=== PATIENT | female | born 1945 | race Caucasian/White ===

== ENCOUNTER → 2017-03-09 | Outpatient (CLI) | payer MEDICARE ==
[~2017-03-09] VITALS: Ht 170.2 cm; Wt 86.3 kg
[~2017-03-09] MED LIST: ACTO30TA10 PO; ASPI-110 PO; CANA300T PO; CHLORHEXIDINE GLUCONATE 2 % 1 PACK (2 CLOTHS) TOPICAL PRN; FLUO1TAB3 PO; INSULIN HUMAN REGULAR 1,000 UNITS/10 ML VIAL SQ PRN; LACTATED RINGER'S 1000 ML IV PRN; LEVO150T7 PO; LISI-515 PO; LOVA40TA PO; METF1000 PO; METOPROLOL TARTRATE 25 MG TAB PO PRN; POVIDONE IODINE 5% (ANTISEPSIS KIT) 4 APPLICATIONS EACH NARE PRN; PRAM0.5T PO; PRIM50TA5 PO; REGL10TA5 PO; SITA1TAB2 PO; SODIUM CHLORID 0.9% 500 ML IV PRN; ZANTTAB PO
[2017-03-09 10:58] VITALS: BP 134/67; PULSE 79; RESP 16; TEMP 98.1; O2SAT 96
[2017-03-09 12:18] LABS: HEMATOCRIT 34.6 % (35.0-46.0); MEAN CELL VOLUME 94.8 FL (80.0-100.0); MEAN CORPUSCULAR HEMOGLOBIN 30.9 PG (27.0-34.0); MEAN CORPUSCULAR HGB CONC 32.6 % (32.0-36.0); PLATELET COUNT 294 TH/MM3 (150-450); RED BLOOD COUNT 3.64 MIL/MM3 (4.00-5.30); RED CELL DISTRIBUTION WIDTH 16.2 % (11.6-17.2); WHITE BLOOD COUNT 15.5 TH/MM3 (4.0-11.0)
[2017-03-09 12:22] LABS: HEMO FLAGS AUTO DIFF
[2017-03-09 12:31] LABS: PROTHROMBIN TIME - PATIENT 10.6 SEC (9.8-11.6)
[2017-03-09 12:35] LABS: ALT (GPT) 78 U/L (10-53)
[2017-03-09 12:37] LABS: ALKALINE PHOSPHATASE 477 U/L (45-117); TOTAL BILIRUBIN ADULT 5.6 MG/DL (0.2-1.0)
[2017-03-09 12:58] LABS: ANION GAP 8 MEQ/L (5-15); AST (GOT) 102 U/L (15-37); BICARBONATE 24.7 MEQ/L (21.0-32.0); BLOOD UREA NITROGEN 32 MG/DL (7-18); CHLORIDE 98 MEQ/L (98-107); GLOMERULAR FILTRATION RATE 55 ML/MIN (>89); POTASSIUM 3.7 MEQ/L (3.5-5.1); SODIUM (NA) 131 MEQ/L (136-145)
[2017-03-09 13:06] LABS: BANDS 4 % (0-6); BASOPHILS 1 % (0-2); EOSINOPHILS 1 % (0-4); MYELOCYTES 1 % (0-0); NEUTROPHIL # MANUAL DIFF 12.9 TH/MM3 (1.8-7.7); PLATELET ESTIMATE SMEAR NORMAL (NORMAL); PLATELET MORPHOLOGY ENLARGED (NORMAL); POLYS (SEG NEUTROPHILS) 78 % (16-70); WBC DIFF SAMPLE 100
[2017-03-09 13:07] LABS: SCAN/DIFF FINAL DIFF MANUAL
--- NOTE | 2017-03-09 15:15 | EKG ---
Date Performed: 03/09/2017 Time Performed: 11:01:22 PTAGE: 72 years EKG: Sinus rhythm Since previous tracing, no significant change noted NORMAL ECG PREVIOUS TRACING : 02/18/2007 08.01 DOCTOR: Saad Ponce Interpretating Date/Time 03/09/2017 15:14:03
== END ==
LOC: HOR 10:26
PROVIDERS: ATTEND Internal Medicine Gastroenterology
DX: D64.9 Anemia, unspecified (principal); R79.1 Abnormal coagulation profile; Z53.09 Procedure and treatment not carried out because of other contraindication; Z01.810 Encounter for preprocedural cardiovascular examination
CPT/HCPCS: 80053; 85007; 85027; 85610; 93005; G0463; J7120; 99211

== ENCOUNTER 2018-02-11 09:29 | Observation (INO) | payer MEDICARE ==
[~2018-02-11] VITALS: Ht 167.6 cm; Wt 68.0 kg
[~2018-02-11 09:29] MED LIST changes: -ACTO30TA10 PO; -ASPI-110 PO; +ASPI1TAB57 PO; -CHLORHEXIDINE GLUCONATE 2 % 1 PACK (2 CLOTHS) TOPICAL PRN; -INSULIN HUMAN REGULAR 1,000 UNITS/10 ML VIAL SQ PRN; -LACTATED RINGER'S 1000 ML IV PRN; -METOPROLOL TARTRATE 25 MG TAB PO PRN; +PIOG30 PO; -POVIDONE IODINE 5% (ANTISEPSIS KIT) 4 APPLICATIONS EACH NARE PRN; -SODIUM CHLORID 0.9% 500 ML IV PRN
[2018-02-11] MEDS ORDERED: HUMALOG SQ (10:52)
[2018-02-11] MEDS ORDERED: URSO300C2 PO (10:52)
[2018-02-11] MEDS ORDERED: HYDR25TA5 PO (10:52)
[2018-02-11 11:05] LABS: AUTOMATED NEUTROPHIL # 7.6 TH/MM3 (1.8-7.7); BASOPHIL # 0.1 TH/MM3 (0-0.2); BASOPHIL % 0.7 % (0.0-2.0); EOSINOPHIL # 0.1 TH/MM3 (0-0.4); EOSINOPHIL % 0.6 % (0.0-4.0); HEMATOCRIT 35.7 % (35.0-46.0); HEMOGLOBIN 12.5 GM/DL (11.6-15.3); LYMPH % 14.6 % (9.0-44.0); LYMPHOCYTE # 1.4 TH/MM3 (1.0-4.8); MEAN CELL VOLUME 84.7 FL (80.0-100.0); MEAN CORPUSCULAR HEMOGLOBIN 29.7 PG (27.0-34.0); MEAN CORPUSCULAR HGB CONC 35.1 % (32.0-36.0); MEAN PLATELET VOLUME 8.7 FL (7.0-11.0); MONO % 6.4 % (0.0-8.0); MONOCYTE # 0.6 TH/MM3 (0-0.9); NEUT % 77.7 % (16.0-70.0); PLATELET COUNT 264 TH/MM3 (150-450); RED BLOOD COUNT 4.22 MIL/MM3 (4.00-5.30); RED CELL DISTRIBUTION WIDTH 15.3 % (11.6-17.2); WHITE BLOOD COUNT 9.7 TH/MM3 (4.0-11.0)
[2018-02-11 11:14] LABS: INTERNATIONAL NORMALIZED RATIO 1.1 RATIO; PROTHROMBIN TIME - PATIENT 10.7 SEC (9.8-11.6)
[2018-02-11 11:18] LABS: BICARBONATE 24.1 MEQ/L (21.0-32.0); CALCIUM 8.7 MG/DL (8.5-10.1); CREATININE 1.06 MG/DL (0.50-1.00)
[2018-02-11] MEDS ORDERED: LANTUS2P SQ (11:26)
[2018-02-11] MEDS ORDERED: METOPROLOL TARTRATE 25 MG TAB PO PRN (11:30)
[2018-02-11] MEDS ORDERED: LACTATED RINGER'S 1000 ML IV PRN (11:30)
[2018-02-11] MEDS ORDERED: CHLORHEXIDINE GLUCONATE 2 % 1 PACK (2 CLOTHS) TOPICAL PRN (11:30)
[2018-02-11] MEDS ORDERED: SODIUM CHLORID 0.9% 500 ML IV PRN (11:30)
[2018-02-11] MEDS ORDERED: POVIDONE IODINE 5% (ANTISEPSIS KIT) 4 APPLICATIONS EACH NARE PRN (11:30)
[2018-02-11] MEDS ORDERED: CHLORHEXIDINE GLUCONATE 4% SOLN 120 ML BTL TOPICAL SCH (11:45)
[2018-02-11] MEDS ORDERED: ceFAZolin 2 GM/DEX PREMIX 50 ML IV SCH (11:45)
[2018-02-11] MEDS ORDERED: INSULIN HUMAN REGULAR 1,000 UNITS/10 ML VIAL SQ PRN (11:45)
[2018-02-11] MEDS ORDERED: VANCOMYCIN HCL 1000 MG VIAL ONE (12:00)
[2018-02-11] MEDS ORDERED: ONDANSETRON HCL 4 MG/2 ML VIAL IV ONE (12:00)
[2018-02-11] MEDS ORDERED: GLYCOPYRROLATE 1 MG/5 ML SYRINGE IV PUSH ONE (12:00)
[2018-02-11] MEDS ORDERED: PROPOFOL 200 MG/20 ML AMP IV ONE (12:00)
[2018-02-11] MEDS ORDERED: PHENYLEPH/NS 1000 MCG/10 ML SYR IV ONE (12:00)
[2018-02-11] MEDS ORDERED: ePHEDrine/NS 25 MG/5 ML SYRINGE IV ONE (12:00)
[2018-02-11] MEDS ORDERED: LIDOCAINE HCL 1% PF 5 ML SYRINGE OTHER ONE (12:00)
[2018-02-11] MEDS ORDERED: DEXAMETHASONE SOD PHOS 4 MG/ML VIAL IV ONE (12:00)
[2018-02-11] MEDS ORDERED: NEOSTIGMINE 5 MG/5 ML SYRINGE IV PUSH ONE (12:00)
[2018-02-11] MEDS ORDERED: SODIUM CHLOR 0.9% 250 ML INJ 250 ML ONE (12:01)
[2018-02-11] MEDS ORDERED: GENTAMICIN SULFATE 80 MG/2 ML VIAL ONE (12:01)
[2018-02-11] MEDS ORDERED: BUPIVACAINE/EPINEPHRINE 0.5% PF 10 ML VIAL ONE (13:04)
--- NOTE | 2018-02-11 14:18 | RADRPT ---
EXAM DATE: 02/11/2018 2:15 PM EDT AGE/SEX: 72 years / Female INDICATIONS: ORIF right ankle. CLINICAL DATA: This is the patient's initial encounter. Patient reports that signs and symptoms have been present for 1 day and indicates a pain score of Nonresponsive. MEDICAL/SURGICAL HISTORY: Non-responsive. Non-responsive. COMPARISON: No prior exams available for comparison. FINDINGS: Side plate and multiple screws traverse the distal tibia with excellent anatomical alignme nt of the bony structures. CONCLUSION: Intact postsurgical changes for technique. Electronically signed by: Ld Parson MD 02/11/2018 2:17 PM EDT
[2018-02-11] MEDS ORDERED: MIDAZOLAM HCL 2 MG/2 ML VIAL ONE (14:23)
[2018-02-11] MEDS ORDERED: BISACODYL 10 MG SUPP RECTAL PRN (14:30)
[2018-02-11] MEDS ORDERED: SODIUM CHLORIDE 0.9% FLUSH 10 ML FLUSH IV FLUSH PRN (14:30)
[2018-02-11] MEDS ORDERED: Post-op Orders (for Pharmacy) XX ONE (14:30)
[2018-02-11] MEDS ORDERED: MORPHINE SULFATE 8 MG/ML INJ IV PUSH PRN (14:30)
[2018-02-11] MEDS ORDERED: diphenhydrAMINE HCL 25 MG CAP PO PRN (14:30)
--- NOTE | 2018-02-11 14:30 | PD.OP ---
cc: Pema Bai MD Operative Report Date of Surgery: Feb 11, 2018 Preoperative Diagnosis: Closed right ligamentous bimalleolar ankle fracture Postoperative Diagnosis: Same Procedure: Open reduction internal fixation right ligamentous bimalleolar ankle fracture Open reduction internal fixation right syndesmosis Anesthesia: General Surgeon: Pema Bai Rail Technician(s): Enrico Palomares Operation and Findings: EBL: 10 cc Specimens: None Complications: None Indications for procedure: Patient is a 72-year-old female presented to my clinic with a right displaced ligamentous bimalleolar ankle fracture with significant talar shift. Options of management were discussed with the patient including continued nonoperative care versus operative intervention in the form of open reduction internal fixation. Risks of surgery including but not limited to: Infection, nonunion or malunion, hardware malposition or failure, neurovascular injury, persistent ankle pain and/or stiffness, ankle instability , possible need for further surgery, and other unforeseen complications were all discussed with the patient. At this time she did elect to proceed with the above-mentioned procedure. Description of procedure: Patient was brought back to the operating room and placed supine on operating table with all bony prominence is well-padded. General anesthesia then ensued. A tourniquet was placed on the upper leg and patient was prepped and draped in standard sterile fashion. Preoperative antibiotics were given within 1 hour of incision. A lateral incision was made directly over the distal fibula where sharp dissection through the skin and subcutaneous tissue. The fracture was immediately identified and freed of tissue. There is significant tissue with in the fracture site that had to be cleaned to allow appropriate reduction. The fracture was reduced and held with a bone clamp. This was verified with AP and lateral radiographs. A lateral based distal fibular plate was then applied and affixed initially distally with locking screws. This was then appropriately reduced to the proximal fibula with nonlocking screws. The remaining locking screws were then placed distally. At this time there was good fixation and the fracture was well reduced, the fibula out to length and the mortise appeared stable. Given the fact the patient has significant diabetic neuropathy and relatively poor bone quality, it was decided that a syndesmotic screw would be placed. This was placed from lateral to medial through the fibula and into the distal tibia parallel to the joint surface but the foot held in maximum dorsiflexion. This was initially drilled, measured and then an appropriate length screw placed. Final radiographs demonstrated the hardware was in appropriate position, the fracture was well reduced and the ankle appeared stable. The wound was thoroughly irrigated with normal saline laden with gentamicin. The subcutaneous tissue was then closed with 2-0 Vicryl sutures and the skin closed with nylon. Half percent Marcaine was then injected for local anesthetic. Sterile dressings were then applied and a splint placed. Patient was awoke from general anesthesia without complication. Disposition: Patient will remain nonweightbearing to the right lower extremity in her splint until follow-up. Pema Bai MD Feb 11, 2018 14:30
[2018-02-11] MEDS ORDERED: ONDANSETRON ODT 4 MG TAB PO PRN (15:00)
[2018-02-11] MEDS ORDERED: INSULIN ASPART SUPPLEMENTAL SCALE ONE (15:13)
[2018-02-11] MEDS ORDERED: GLUCAGON 1 MG/ML VIAL OTHER PRN (15:30)
[2018-02-11] MEDS ORDERED: DEXTROSE 50% IN WATER 50 ML VIAL(D50) IV PUSH PRN (15:30)
[2018-02-11] MEDS ORDERED: DO NOT ADM ANY ANTICOAGULANT DRUGS PRN (15:30)
[2018-02-11] MEDS: MEDIUM DOSE INSULIN NOVOLOG SUPPLEMENTAL SCALE SQ SCH ×2 (17:00→21:32)
[2018-02-11 17:20] VITALS: BP 149/80; PULSE 71; RESP 16; TEMP 97.5; O2SAT 99
[2018-02-11] MEDS: CALCIUM/VITAMIN D 250 MG/125 U TAB PO SCH (19:08)
[2018-02-11 19:11] VITALS: BP 139/80; PULSE 78; RESP 18; TEMP 98.1; O2SAT 99
[2018-02-11] MEDS: DOCUSATE SODIUM 50 MG/SENNA 8.6 MG TAB PO SCH (21:32)
[2018-02-11] MEDS: SODIUM CHLORIDE 0.9% FLUSH 10 ML FLUSH IV FLUSH SCH (21:33)
[2018-02-11 23:03] VITALS: BP 163/86; PULSE 75; RESP 18; TEMP 98.7; O2SAT 98
[2018-02-12] MEDS: oxyCODONE/ACETAMINOPHEN 5 MG/325 MG TAB PO PRN ×2 (01:01→21:29)
[2018-02-12 03:06] VITALS: BP 163/79; PULSE 73; RESP 18; TEMP 97.2; O2SAT 97
[2018-02-12 08:00] VITALS: BP 135/78; PULSE 71; RESP 18; TEMP 97.1; O2SAT 98
[2018-02-12] MEDS: MEDIUM DOSE INSULIN NOVOLOG SUPPLEMENTAL SCALE SQ SCH ×4 (08:00→21:29)
[2018-02-12] MEDS: SODIUM CHLORIDE 0.9% FLUSH 10 ML FLUSH IV FLUSH SCH ×2 (09:00→21:28)
[2018-02-12] MEDS: CALCIUM/VITAMIN D 250 MG/125 U TAB PO SCH ×3 (09:52→18:10)
[2018-02-12] MEDS: MULTIVITAMINS/MINERALS THERAPEUTIC TAB PO SCH (09:52)
[2018-02-12] MEDS: DOCUSATE SODIUM 50 MG/SENNA 8.6 MG TAB PO SCH ×2 (09:52→21:29)
[2018-02-12 12:00] VITALS: BP 169/80; PULSE 68; RESP 20; TEMP 97.6; O2SAT 96
--- NOTE | 2018-02-12 14:17 | PD.ORT.PN ---
Subjective Subjective Remarks Resting comfortably. Denies any issues. Objective Vitals Vital Signs Date Time Temp Pulse Resp B/P (MAP) Pulse Ox O2 Delivery O2 Flow Rate FiO2 02/12/18 12:00 97.6 68 20 169/80 (109) 96 02/12/18 08:00 97.1 71 18 135/78 (97) 98 02/12/18 03:06 97.2 73 18 163/79 (107) 97 02/11/18 23:03 98.7 75 18 163/86 (111) 98 02/11/18 19:11 98.1 78 18 139/80 (99) 99 02/11/18 17:20 97.5 71 16 149/80 (103) 99 02/11/18 15:30 72 14 168/87 (114) 98 Nasal Cannula 2 02/11/18 15:15 74 14 167/80 (109) 98 Nasal Cannula 2 02/11/18 15:00 73 14 167/80 (109) 97 Nasal Cannula 2 02/11/18 14:45 90 14 150/67 (94) 94 Nasal Cannula 2 02/11/18 14:30 78 14 169/78 (108) 94 Nasal Cannula 2 02/11/18 14:15 97.8 70 14 168/82 (110) 99 Nasal Cannula 2 I/O 02/11/18 02/11/18 02/11/18 02/12/18 02/12/18 02/12/18 07:00 15:00 23:00 07:00 15:00 23:00 Intake Total 600 ml 460 ml Output Total 10 ml Balance 590 ml 460 ml Intake Oral 360 ml IV Total 100 ml Other 600 ml Output Estimated Blood Loss 10 ml # Voids 2 # Bowel Movements 0 Result Diagram: 02/11/18 1035 02/11/18 1035 Objective Remarks Awake, alert, NAD RLE: splint in place. No drainage. Wiggling toes. Sensation intact. BCR Assessment & Plan Assessment and Plan 72yo F POD#1 s/p ORIF R ankle fracture 1. NWB RLE in splint 2. PT for mobilization 3. Will need placement to rehab. Follow-up in office 2 weeks after discharge Pema Bai MD Feb 12, 2018 14:17
[2018-02-12] MEDS ORDERED: WALKER WHEELS/F1 MIS (14:19)
[2018-02-12 14:21] VITALS: O2SAT 97
[2018-02-12 16:00] VITALS: BP 154/78; PULSE 67; RESP 18; TEMP 97.6; O2SAT 97
[2018-02-12 20:00] VITALS: BP 153/76; PULSE 69; RESP 17; TEMP 98.2; O2SAT 96
[2018-02-13 00:01] VITALS: BP 125/77; PULSE 68; RESP 17; TEMP 97.6; O2SAT 97
[2018-02-13] MEDS: oxyCODONE/ACETAMINOPHEN 5 MG/325 MG TAB PO PRN ×3 (01:30→13:35)
[2018-02-13] MEDS: SODIUM CHLORIDE 0.9% FLUSH 10 ML FLUSH IV FLUSH SCH (06:40)
--- NOTE | 2018-02-13 07:09 | PD.ORT.PN ---
Subjective Subjective Remarks POD 2 s/p ORIF right ankle by dr Bai doing well. reports no pain. no complaints. Objective Vitals Vital Signs Date Time Temp Pulse Resp B/P (MAP) Pulse Ox O2 Delivery O2 Flow Rate FiO2 02/13/18 00:01 97.6 68 17 125/77 (93) 97 02/12/18 20:00 98.2 69 17 153/76 (101) 96 02/12/18 16:00 97.6 67 18 154/78 (103) 97 02/12/18 14:21 97 21 02/12/18 12:00 97.6 68 20 169/80 (109) 96 02/12/18 08:00 97.1 71 18 135/78 (97) 98 I/O 02/12/18 02/12/18 02/12/18 02/13/18 02/13/18 02/13/18 07:00 15:00 23:00 07:00 15:00 23:00 Intake Total 460 ml 840 ml 480 ml Balance 460 ml 840 ml 480 ml Intake Oral 360 ml 840 ml 480 ml IV Total 100 ml # Voids 2 5 4 # Bowel Movements 0 Result Diagram: 02/11/18 1035 02/11/18 1035 Objective Remarks Awake, alert, NAD RLE: splint in place. No drainage. Wiggling toes. Sensation intact. BCR Assessment & Plan Assessment and Plan 72yo F POD#2 s/p ORIF R ankle fracture 1. NWB RLE in splint 2. PT for mobilization 3. Will need placement to rehab. Follow-up in office 2 weeks after discharge 4. Clear for DC to SNF once arrangements made Remigio Sanderson/[employer] PA Feb 13, 2018 07:08
[2018-02-13 08:00] VITALS: BP 176/81; PULSE 66; RESP 20; TEMP 97.8; O2SAT 97
[2018-02-13] MEDS: MEDIUM DOSE INSULIN NOVOLOG SUPPLEMENTAL SCALE SQ SCH (08:00)
[2018-02-13] MEDS: MULTIVITAMINS/MINERALS THERAPEUTIC TAB PO SCH (08:52)
[2018-02-13] MEDS: DOCUSATE SODIUM 50 MG/SENNA 8.6 MG TAB PO SCH (08:52)
[2018-02-13] MEDS: CALCIUM/VITAMIN D 250 MG/125 U TAB PO SCH ×2 (08:52→13:00)
[2018-02-13 09:39] VITALS: O2SAT 98
== END 2018-02-13 14:21 | disposition home or self-care (01) ==
LOC: HSDC 09:29 → HSDI 14:24 → N06B 15:48
PROVIDERS: ADMIT Orthopaedic Surgery Orthopaedic Surgery of the Spine; ATTEND Orthopaedic Surgery Orthopaedic Surgery of the Spine
DX: S82.841A Displaced bimalleolar fracture of right lower leg, initial encounter for closed fracture (principal); S93.431A Sprain of tibiofibular ligament of right ankle, initial encounter; E11.9 Type 2 diabetes mellitus without complications; Z79.899 Other long term (current) drug therapy; W19.XXXA Unspecified fall, initial encounter
CPT/HCPCS: 01480; 27814; 73600; 76000; 80048; 82948; 85025; 85610; 85730; 94150; 96365; 96366; 97110; 97162; 97530; C1713; G0378; G8987; G8988; J0690; J1100; J1580; J1815; J2250; J2370; J2405; J2710; J3010; J3370; J7050; J7120